=== PATIENT | male | born 1960 | race African-American/Black ===

== ENCOUNTER 2018-02-10 18:12 | Emergency (ER) | payer MEDICAID ==
[~2018-02-10] VITALS: Ht 177.8 cm; Wt 78.0 kg
[~2018-02-10 18:12] MED LIST: ASPI-1159 PO
[2018-02-10 21:34] LABS: CLARITY URINE TURBID (CLEAR); COLOR URINE RED (YELLOW); KETONES URINE TRACE (NEGATIVE); LEUKOCYTE ESTERASE URINE 3+ (NEGATIVE); NITRITE URINE NEGATIVE (NEGATIVE); OCCULT BLOOD URINE 3+ (NEGATIVE); PH URINE 6.5 (4.5-8.0); PROTEIN URINE 2+ (NEGATIVE); SPECIFIC GRAVITY URINE 1.014 (1.005-1.030)
[2018-02-11 00:54] VITALS: BP 123/75
== END 2018-02-11 02:06 | disposition home or self-care (01) ==
LOC: ER 18:12
DX: T83.018A Breakdown (mechanical) of other urinary catheter, initial encounter (principal); N39.0 Urinary tract infection, site not specified; N40.0 Benign prostatic hyperplasia without lower urinary tract symptoms; G83.89 Other specified paralytic syndromes; Z79.899 Other long term (current) drug therapy; Z86.73 Personal history of transient ischemic attack (TIA), and cerebral infarction without residual deficits
CPT/HCPCS: 51702; 81003; 87077; 87086; 87186; 99284; A4217; Z7610

== ENCOUNTER 2018-02-21 10:16 | Emergency (ER) | payer MEDICAID ==
[~2018-02-21] VITALS: Ht 170.2 cm; Wt 77.0 kg
[2018-02-21 10:37] VITALS: BP 126/80
== END 2018-02-21 14:00 | disposition home or self-care (01) ==
LOC: ER 13:56
DX: Z43.6 Encounter for attention to other artificial openings of urinary tract (principal); N13.9 Obstructive and reflux uropathy, unspecified; Z86.73 Personal history of transient ischemic attack (TIA), and cerebral infarction without residual deficits; Z79.82 Long term (current) use of aspirin
CPT/HCPCS: 51702; 99284

== ENCOUNTER 2018-04-18 12:37 | Emergency (ER) | payer MEDICAID ==
[~2018-04-18] VITALS: Ht 172.7 cm; Wt 80.0 kg
[2018-04-18 13:25] LABS: CLARITY URINE CLOUDY (CLEAR); COLOR URINE YELLOW (YELLOW); KETONES URINE NEGATIVE (NEGATIVE); LEUKOCYTE ESTERASE URINE 2+ (NEGATIVE); NITRITE URINE NEGATIVE (NEGATIVE); OCCULT BLOOD URINE 3+ (NEGATIVE); PH URINE 6.5 (4.5-8.0); PROTEIN URINE 1+ (NEGATIVE); SPECIFIC GRAVITY URINE 1.017 (1.005-1.030)
[2018-04-18 13:43] VITALS: BP 165/93
== END 2018-04-18 14:10 | disposition home or self-care (01) ==
LOC: ER 12:44
DX: R33.9 Retention of urine, unspecified (principal); I69.354 Hemiplegia and hemiparesis following cerebral infarction affecting left non-dominant side; Z79.82 Long term (current) use of aspirin
CPT/HCPCS: 51702; 99284

== ENCOUNTER 2018-04-20 09:33 | Inpatient (IN) | payer MEDICAID ==
[~2018-04-20] VITALS: Ht 172.7 cm; Wt 81.7 kg
[2018-04-20] MEDS ORDERED: ONDANSETRON HCL 4MG/2ML INJ IV ONE (10:30)
[2018-04-20] MEDS ORDERED: MORPHINE SULFATE 4 MG/ML CPJ (NOT FOR IM USE) IV ONE (10:30)
[2018-04-20 10:33] LABS: BASOPHILS % 0.8 % (0.0-2.0); EOSINOPHILS % 1.9 % (0.0-5.0); HEMATOCRIT. 49.2 % (42.0-52.0); HEMOGLOBIN. 16.8 g/dL (14.0-18.0); LYMPHOCYTES % 21.5 % (20.0-50.0); MEAN CORPUSCULAR HEMOGLOBIN 30.7 pg (28.0-32.0); MEAN CORPUSCULAR VOLUME 90.2 fL (80.0-94.0); MEAN PLATELET VOLUME 7.7 fl (7.4-10.4); MONOCYTES % 10.1 % (2.0-8.0); NEUTROPHILS % 65.7 % (40.0-76.0); PLATELET 223 x1000/uL (130-400); RED BLOOD CELL COUNT 5.46 mill/uL (4.7-6.1); RED CELL DISTRIBUTION WIDTH 14.6 % (11.6-14.6)
[2018-04-20 10:42] LABS: INR 1.1; PARTIAL THROMBOPLASTIN TIME 29.3 sec (23.4-31.0); PROTHROMBIN TIME 10.7 sec (9.1-11.1)
[2018-04-20 10:57] LABS: CHLORIDE 106 mEq/L (98-107); ETHANOL BLOOD < 10 mg/dL
[2018-04-20] MEDS ORDERED: ASPIRIN 81MG TABLET PO ONE (11:15)
[2018-04-20] MEDS ORDERED: HYDROCODONE/ACETAMINOPHEN 5/325MG TABLET PO PRN (12:15)
[2018-04-20] MEDS ORDERED: CLONIDINE 0.1MG TABLET PO PRN (12:15)
[2018-04-20] MEDS ORDERED: MAGNESIUM/ALUMINUM HYDROXIDE/SIMETHICONE 30ML UDC PO PRN (12:15)
[2018-04-20] MEDS ORDERED: ONDANSETRON HCL 4MG/2ML INJ IV PRN (12:15)
[2018-04-20] MEDS ORDERED: IPRATROPIUM/ALBUTEROL 0.5-3(2.5)MG/3ML NEB INH PRN (12:15)
[2018-04-20] MEDS ORDERED: DOCUSATE SODIUM 100MG CAPSULE PO PRN (12:15)
[2018-04-20 12:19] LABS: CLARITY URINE CLEAR (CLEAR); COLOR URINE YELLOW (YELLOW); KETONES URINE NEGATIVE (NEGATIVE); LEUKOCYTE ESTERASE URINE 3+ (NEGATIVE); NITRITE URINE NEGATIVE (NEGATIVE); OCCULT BLOOD URINE 1+ (NEGATIVE); PROTEIN URINE NEGATIVE (NEGATIVE); SPECIFIC GRAVITY URINE 1.007 (1.005-1.030)
[2018-04-20 13:54] LABS: *COCAINE SCREEN URINE NEGATIVE (NEGATIVE); METHADONE URINE SCREEN NEGATIVE (NEGATIVE); OPIATES URINE SCREEN NEGATIVE (NEGATIVE)
[2018-04-20 13:55] LABS: *AMPHETAMINES SCREEN URINE NEGATIVE (NEGATIVE); *BARBITURATES SCREEN URINE NEGATIVE (NEGATIVE); *BENZODIAZEPINES SCREEN URINE NEGATIVE (NEGATIVE); CANNABINOID URINE SCREEN NEGATIVE (NEGATIVE); PHENCYCLIDINE URINE SCREEN NEGATIVE (NEGATIVE)
[2018-04-20 15:14] LABS: CHLORIDE 107 mEq/L (98-107)
[2018-04-20 15:24] LABS: CREATINE KINASE 402 IU/L (39-308); CREATINE KINASE MB FRACTION 1.3 ng/mL (0.5-3.6)
[2018-04-20 15:45] VITALS: BP 128/80
[2018-04-20 16:00] VITALS: BP 128/80
[2018-04-20] MEDS: ENOXAPARIN 40MG/0.4ML SYR SUBCUT SCH (17:49)
[2018-04-20 20:00] VITALS: BP 114/76
[2018-04-20] MEDS: BACLOFEN 10MG TABLET PO SCH (21:18)
[2018-04-20 23:53] LABS: CREATINE KINASE 583 IU/L (39-308); CREATINE KINASE MB FRACTION 1.2 ng/mL (0.5-3.6)
[2018-04-21] VITALS (7 sets, daily range): BP systolic 98–139; BP diastolic 45–68
[2018-04-21] MEDS: BACLOFEN 10MG TABLET PO SCH ×3 (06:45→21:14)
[2018-04-21 07:46] LABS: HEMATOCRIT. 46.5 % (42.0-52.0); HEMOGLOBIN. 15.6 g/dL (14.0-18.0); MEAN CORPUSCULAR HEMOGLOBIN 30.3 pg (28.0-32.0); MEAN CORPUSCULAR VOLUME 90.7 fL (80.0-94.0); PLATELET 215 x1000/uL (130-400); RED BLOOD CELL COUNT 5.13 mill/uL (4.7-6.1); RED CELL DISTRIBUTION WIDTH 14.5 % (11.6-14.6)
[2018-04-21] MEDS: ENOXAPARIN 40MG/0.4ML SYR SUBCUT SCH (09:00)
[2018-04-21] MEDS: ASPIRIN 81MG EC TABLET PO SCH (10:03)
[2018-04-21 13:55] LABS: PLATELET ESTIMATE NORMAL
[2018-04-21] MEDS: CEFTRIAXONE 1 G PREMIX 50 ML IV SCH (15:11)
[2018-04-21] MEDS: TAMSULOSIN HCL 0.4MG SR CAPSULE PO SCH (21:14)
[2018-04-22] VITALS: BP 97/54
[2018-04-22 04:13] VITALS: BP 97/51
[2018-04-22] MEDS: BACLOFEN 10MG TABLET PO SCH ×3 (05:09→21:34)
[2018-04-22 08:00] VITALS: BP 104/68
[2018-04-22] MEDS: ENOXAPARIN 40MG/0.4ML SYR SUBCUT SCH (09:00)
[2018-04-22] MEDS: ASPIRIN 81MG EC TABLET PO SCH (10:26)
[2018-04-22 12:00] VITALS: BP 102/61
[2018-04-22] MEDS: CLOPIDOGREL 75MG TABLET PO SCH (13:46)
[2018-04-22] MEDS: CEFTRIAXONE 1 G PREMIX 50 ML IV SCH (14:01)
[2018-04-22 16:00] VITALS: BP 123/77
[2018-04-22 16:37] LABS: T4 FREE 1.04 ng/dL (0.76-1.46)
[2018-04-22 16:50] LABS: FOLIC ACID (FOLATE) SERUM 11.3 ng/mL (>5.38)
[2018-04-22 20:00] VITALS: BP 121/79
[2018-04-22] MEDS: TAMSULOSIN HCL 0.4MG SR CAPSULE PO SCH (21:33)
[2018-04-22] MEDS: ATORVASTATIN CALCIUM 20MG TABLET PO SCH (21:34)
[2018-04-23] VITALS (7 sets, daily range): BP systolic 110–184; BP diastolic 64–99
[2018-04-23] MEDS: BACLOFEN 10MG TABLET PO SCH ×3 (06:54→22:42)
[2018-04-23] MEDS: ENOXAPARIN 40MG/0.4ML SYR SUBCUT SCH (09:00)
[2018-04-23] MEDS ORDERED: CLONIDINE 0.1MG TABLET PO PRN (09:15)
[2018-04-23] MEDS: CLOPIDOGREL 75MG TABLET PO SCH (10:08)
[2018-04-23] MEDS: CEFTRIAXONE 1 G PREMIX 50 ML IV SCH (14:33)
[2018-04-23] MEDS: LACTULOSE 20G/30ML UDC PO SCH ×2 (17:17→22:46)
[2018-04-23] MEDS: CYANOCOBALAMIN 1000MCG/ML VIAL IM SCH (17:18)
[2018-04-23] MEDS: TAMSULOSIN HCL 0.4MG SR CAPSULE PO SCH (22:43)
[2018-04-23] MEDS: ATORVASTATIN CALCIUM 20MG TABLET PO SCH (22:44)
[2018-04-24 04:10] VITALS: BP 115/68
[2018-04-24] MEDS: BACLOFEN 10MG TABLET PO SCH ×3 (06:27→21:16)
[2018-04-24 07:46] LABS: BASOPHILS % 0.8 % (0.0-2.0); EOSINOPHILS % 4.3 % (0.0-5.0); HEMATOCRIT. 47.9 % (42.0-52.0); LYMPHOCYTES % 31.7 % (20.0-50.0); MEAN CORPUSCULAR VOLUME 89.8 fL (80.0-94.0); MEAN PLATELET VOLUME 7.6 fl (7.4-10.4); MONOCYTES % 13.7 % (2.0-8.0); NEUTROPHILS % 49.5 % (40.0-76.0); PLATELET 233 x1000/uL (130-400); RED BLOOD CELL COUNT 5.34 mill/uL (4.7-6.1); RED CELL DISTRIBUTION WIDTH 14.2 % (11.6-14.6)
[2018-04-24 08:51] LABS: CHLORIDE 105 mEq/L (98-107)
[2018-04-24 08:53] LABS: PHOSPHORUS 3.4 mg/dL (2.5-4.9)
[2018-04-24] MEDS: ENOXAPARIN 40MG/0.4ML SYR SUBCUT SCH ×2 (09:00→09:38)
[2018-04-24] MEDS: CYANOCOBALAMIN 1000MCG/ML VIAL IM SCH (09:38)
[2018-04-24] MEDS: CLOPIDOGREL 75MG TABLET PO SCH (09:38)
[2018-04-24] MEDS: LACTULOSE 20G/30ML UDC PO SCH (09:38)
[2018-04-24 12:00] VITALS: BP 115/73
[2018-04-24] MEDS: CEFTRIAXONE 1 G PREMIX 50 ML IV SCH (14:01)
[2018-04-24 16:00] VITALS: BP 105/65
[2018-04-24 20:00] VITALS: BP 111/76
[2018-04-24] MEDS: ATORVASTATIN CALCIUM 20MG TABLET PO SCH (21:16)
[2018-04-24] MEDS: TAMSULOSIN HCL 0.4MG SR CAPSULE PO SCH (21:22)
[2018-04-25] VITALS: BP 116/74
[2018-04-25 04:00] VITALS: BP_SYST 110; BP_SYST 115; BP_DIAS 50; BP_DIAS 80
[2018-04-25] MEDS: BACLOFEN 10MG TABLET PO SCH ×4 (05:39→20:49)
[2018-04-25] MEDS: ENOXAPARIN 40MG/0.4ML SYR SUBCUT SCH (09:02)
[2018-04-25] MEDS: CYANOCOBALAMIN 1000MCG/ML VIAL IM SCH (09:02)
[2018-04-25] MEDS: CLOPIDOGREL 75MG TABLET PO SCH (09:02)
[2018-04-25 12:06] VITALS: BP 115/71
[2018-04-25 13:07] LABS: ANTI-THROMBIN ACTIVITY 105 % (75-135); DRVVT LA 38.2 sec (0.0-47.0); LUPUS ANTICOAG INTERPRETATION Comment: (.); PROTEIN C FUNCTIONAL 105 % (73-180); PTT-LA 32.5 sec (0.0-51.9)
[2018-04-25 15:58] VITALS: BP 130/79
[2018-04-25] MEDS: CEFTRIAXONE 1 G PREMIX 50 ML IV SCH (17:06)
[2018-04-25 20:00] VITALS: BP 137/86
[2018-04-25] MEDS: ACETAMINOPHEN 325MG TABLET PO PRN (20:06)
[2018-04-25] MEDS: TAMSULOSIN HCL 0.4MG SR CAPSULE PO SCH (20:50)
[2018-04-25] MEDS: ATORVASTATIN CALCIUM 20MG TABLET PO SCH (20:50)
[2018-04-26 04:00] VITALS: BP 111/70
[2018-04-26 04:13] LABS: ANTI-CARDIOLIPIN AB IGA < 9 APL U/mL (0-11); ANTI-CARDIOLIPIN AB IGG < 9 GPL U/mL (0-14); ANTI-CARDIOLIPIN AB IGM < 9 MPL U/mL (0-12)
[2018-04-26] MEDS: BACLOFEN 10MG TABLET PO SCH ×2 (05:35→13:25)
[2018-04-26] MEDS: CLOPIDOGREL 75MG TABLET PO SCH (08:14)
[2018-04-26] MEDS: ENOXAPARIN 40MG/0.4ML SYR SUBCUT SCH (08:15)
[2018-04-26] MEDS: CYANOCOBALAMIN 1000MCG/ML VIAL IM SCH (08:15)
[2018-04-26] MEDS ORDERED: POLYETHYLENE GLYCOL 3350 (17GM) 1 DOSE PACK PO PRN (11:00)
[2018-04-26 12:00] VITALS: BP 108/69
[2018-04-26 14:05] VITALS: BP 127/84
[2018-04-26] MEDS: ACETAMINOPHEN 325MG TABLET PO PRN (14:36)
[2018-04-26] MEDS: CEFTRIAXONE 1 G PREMIX 50 ML IV SCH (14:37)
[2018-04-26 16:00] VITALS: BP 102/64
[2018-04-26 18:23] VITALS: BP 102/64
== END 2018-04-26 19:09 | DRG 463 ==
LOC: ER 09:33 → EDBEDREQTM 10:19 → EDBEDREQSVC 10:19 → 6WST 11:10 → EDBEDREQTM 11:15 → EDBEDREQ 11:15 → ENRESERV 14:23 → 6WST 16:40
PROVIDERS: ADMIT Internal Medicine; ATTEND Internal Medicine
DX: N39.0 Urinary tract infection, site not specified (principal); G93.40 Encephalopathy, unspecified; I69.354 Hemiplegia and hemiparesis following cerebral infarction affecting left non-dominant side; M62.82 Rhabdomyolysis; N40.0 Benign prostatic hyperplasia without lower urinary tract symptoms; I10 Essential (primary) hypertension; M24.50 Contracture, unspecified joint; E78.5 Hyperlipidemia, unspecified; H26.9 Unspecified cataract; H54.61 Unqualified visual loss, right eye, normal vision left eye; Z99.3 Dependence on wheelchair; I69.398 Other sequelae of cerebral infarction; Z79.82 Long term (current) use of aspirin; Z79.899 Other long term (current) drug therapy
CPT/HCPCS: 36415; 70544; 70551; 71045; 80048; 80061; 80305; 81400; 81403; 81407; 81479; 82550; 82553; 82607; 82746; 82962; 83036; 83721; 83735; 83880; 84100; 84439; 84443; 84481; 84484; 85300; 85303; 85306; 85613; 85732; 86147; 87077; 87186; 92523; 92610; 93005; 93306; 93880; 93970; 96365; 97112; 97163; 97167; 97530; 99285; G0482; J0696; J1650; J3420; J7050

== ENCOUNTER 2019-11-05 20:57 | Emergency (ER) | payer MEDICAID ==
[~2019-11-05] VITALS: Ht 182.9 cm; Wt 87.0 kg
[2019-11-05] MEDS ORDERED: SODIUM CHLORIDE 0.9% 1,000 ML IV ONE (22:28)
[2019-11-05 22:59] LABS: BG BASE EXCESS -0.2 mmol/L (-2.0-2.0); BG CARBOXYHEMOGLOBIN 0.5 % (0.5-1.5); BG DEOXYHEMOGLOBIN 2.9 % (0.0-5.0); BG FRACTION INSPIRED OXYGEN 21; BG HCO3 ACT 24.1 mmol/L (22.0-26.0); BG METHEMOGLOBIN 0.5 % (0.0-1.5); BG OXYGEN SATURATION 97.1 % (92.0-98.5); BG OXYHEMOGLOBIN 96.1 % (94.0-97.0); BG PCO2 38.4 mmHg (35.0-45.0); BG PH 7.415 (7.350-7.450); BG SAMPLE SITE RIGHT RADIAL; BG TOTAL HEMOGLOBIN 16.6 g/dL (12.0-18.0); BG VENT MODE ROOM AIR
[2019-11-05 23:37] LABS: CHLORIDE 108 mEq/L (98-107)
[2019-11-05 23:38] LABS: BASOPHILS % 0.9 % (0.0-2.0); EOSINOPHILS % 2.8 % (0.0-5.0); HEMATOCRIT. 47.5 % (42.0-52.0); HEMOGLOBIN. 16.2 g/dL (14.0-18.0); LYMPHOCYTES % 26.7 % (20.0-50.0); MEAN CORPUSCULAR HEMOGLOBIN 30.1 pg (28.0-32.0); MEAN CORPUSCULAR VOLUME 88.2 fL (80.0-94.0); MEAN PLATELET VOLUME 7.9 fl (7.4-10.4); MONOCYTES % 11.2 % (2.0-8.0); NEUTROPHILS % 58.4 % (40.0-76.0); PLATELET 255 x1000/uL (130-400); RED BLOOD CELL COUNT 5.39 mill/uL (4.7-6.1); RED CELL DISTRIBUTION WIDTH 14.8 % (11.6-14.6)
[2019-11-06] MEDS ORDERED: MORPHINE SULFATE 2 MG/ML CPJ (NOT FOR IM USE) IV ONE
[2019-11-06 03:02] LABS: CLARITY URINE CLOUDY (CLEAR); COLOR URINE DARK YELLOW (YELLOW); KETONES URINE TRACE (NEGATIVE); LEUKOCYTE ESTERASE URINE TRACE (NEGATIVE); NITRITE URINE NEGATIVE (NEGATIVE); OCCULT BLOOD URINE NEGATIVE (NEGATIVE); PH URINE 5.5 (4.5-8.0); PROTEIN URINE TRACE (NEGATIVE); SPECIFIC GRAVITY URINE 1.029 (1.005-1.030)
[2019-11-06 04:10] VITALS: BP 108/67
[2019-11-10] MEDS ORDERED: BACL-141 PO (00:38)
[2019-11-10] MEDS ORDERED: GABA-529 PO (00:38)
[2019-11-10] MEDS ORDERED: TAMS-11 PO (00:38)
[2019-11-10] MEDS ORDERED: B12/1TAB PO (00:38)
== END 2019-11-06 04:24 | disposition home or self-care (01) ==
LOC: ER 20:57
DX: G56.92 Unspecified mononeuropathy of left upper limb (principal); I10 Essential (primary) hypertension; I69.354 Hemiplegia and hemiparesis following cerebral infarction affecting left non-dominant side; N40.0 Benign prostatic hyperplasia without lower urinary tract symptoms; J44.9 Chronic obstructive pulmonary disease, unspecified
CPT/HCPCS: 36415; 36600; 71045; 80053; 81003; 82375; 82805; 83605; 83880; 84145; 84484; 85025; 85610; 87040; 93005; 96361; 96374; 99285; J2270; J7030

== ENCOUNTER 2020-01-29 08:31 | Inpatient (IN) | payer MEDICAID ==
[~2020-01-29] VITALS: Ht 170.2 cm; Wt 77.1 kg
[~2020-01-29 08:31] MED LIST changes: -ASPI-1159 PO; +B12/1TAB PO; +BACL-141 PO; +GABA-529 PO; +TAMS-11 PO
[2020-01-29 08:56] LABS: BASOPHILS % 0.8 % (0.0-2.0); EOSINOPHILS % 4.3 % (0.0-5.0); HEMATOCRIT. 47.4 % (42.0-52.0); HEMOGLOBIN. 15.9 g/dL (14.0-18.0); LYMPHOCYTES % 41.8 % (20.0-50.0); MEAN CORPUSCULAR HEMOGLOBIN 29.2 pg (28.0-32.0); MEAN CORPUSCULAR VOLUME 87.1 fL (80.0-94.0); MEAN PLATELET VOLUME 7.5 fl (7.4-10.4); NEUTROPHILS % 43.1 % (40.0-76.0); PLATELET 269 x1000/uL (130-400); RED BLOOD CELL COUNT 5.44 mill/uL (4.7-6.1)
[2020-01-29 09:02] LABS: CHLORIDE 109 mEq/L (98-107)
[2020-01-29 09:06] LABS: ETHANOL BLOOD < 10 mg/dL; INR 1.1; PROTHROMBIN TIME 11.4 sec (9.6-11.0)
[2020-01-29 09:09] LABS: LDL CHOLESTEROL 88 mg/dL (5-100)
[2020-01-29 09:20] LABS: CLARITY URINE CLEAR (CLEAR); COLOR URINE YELLOW (YELLOW); KETONES URINE NEGATIVE (NEGATIVE); LEUKOCYTE ESTERASE URINE NEGATIVE (NEGATIVE); NITRITE URINE NEGATIVE (NEGATIVE); OCCULT BLOOD URINE NEGATIVE (NEGATIVE); PROTEIN URINE NEGATIVE (NEGATIVE); SPECIFIC GRAVITY URINE 1.017 (1.005-1.030)
[2020-01-29 09:36] LABS: *AMPHETAMINES SCREEN URINE NEGATIVE (NEGATIVE); *BARBITURATES SCREEN URINE NEGATIVE (NEGATIVE); *BENZODIAZEPINES SCREEN URINE NEGATIVE (NEGATIVE); *COCAINE SCREEN URINE NEGATIVE (NEGATIVE); CANNABINOID URINE SCREEN NEGATIVE (NEGATIVE)
[2020-01-29 09:37] LABS: METHADONE URINE SCREEN NEGATIVE (NEGATIVE); OPIATES URINE SCREEN NEGATIVE (NEGATIVE); PHENCYCLIDINE URINE SCREEN NEGATIVE (NEGATIVE)
[2020-01-29] MEDS ORDERED: LORAZEPAM 2MG/ML CPJ IV ONE (10:30)
[2020-01-29] MEDS ORDERED: LEVETIRACETAM 500MG PREMIX 100 ML IV ONE (10:45)
[2020-01-29 15:03] VITALS: BP 132/75
[2020-01-29] MEDS ORDERED: IOHEXOL-350 100 ML BOTTLE ONE (15:14)
[2020-01-29 16:00] VITALS: BP 136/79
[2020-01-29] MEDS ORDERED: METOPROLOL TARTRATE 25MG TABLET PO NR (16:00)
[2020-01-29] MEDS: DEXT 5%/0.45% NACL 1000ML 1,000 ML IV SCH (16:32)
[2020-01-29] MEDS: ENOXAPARIN 40MG/0.4ML SYR SUBCUT SCH (16:34)
[2020-01-29 17:47] VITALS: BP 106/72
[2020-01-29] MEDS ORDERED: LEVETIRACETAM 1000MG/100ML 100 ML IV SCH (18:30)
[2020-01-29 19:23] LABS: T4 FREE 1.16 ng/dL (0.76-1.46)
[2020-01-29 19:36] LABS: FOLIC ACID (FOLATE) SERUM 10.6 ng/mL (>5.38)
[2020-01-29 20:00] VITALS: BP 124/69
[2020-01-29] MEDS ORDERED: LEVETIRACETAM 500MG PREMIX 100 ML IV SCH ×2 (21:00)
[2020-01-29] MEDS: METOPROLOL TARTRATE 25MG TABLET PO SCH (21:28)
[2020-01-29] MEDS: ATORVASTATIN CALCIUM 10MG TABLET PO SCH (21:28)
[2020-01-29 22:00] VITALS: BP 107/69
[2020-01-30] VITALS (13 sets, daily range): BP systolic 93–126; BP diastolic 45–87
[2020-01-30] MEDS: LORAZEPAM 2MG/ML CPJ IV PRN ×2 (02:39→05:40)
[2020-01-30] MEDS: DEXT 5%/0.45% NACL 1000ML 1,000 ML IV SCH ×2 (05:24→17:33)
[2020-01-30] MEDS ORDERED: BACLOFEN 10MG TABLET PO SCH (06:00)
[2020-01-30] MEDS ORDERED: GABAPENTIN 100MG CAPSULE PO SCH (09:00)
[2020-01-30] MEDS ORDERED: PHENYTOIN SODIUM IV NR (09:00)
[2020-01-30] MEDS ORDERED: ASPIRIN 81MG TABLET PO SCH (09:00)
[2020-01-30] MEDS: METOPROLOL TARTRATE 25MG TABLET PO SCH (09:00)
[2020-01-30] MEDS ORDERED: LEVETIRACETAM 1,000 MG in SODIUM CHLORIDE 0.9% 100 ML IV SCH ×4 (09:00)
[2020-01-30] MEDS ORDERED: SODIUM CHLORIDE 0.9% IV NR (09:00)
[2020-01-30] MEDS: CYANOCOBALAMIN/FA/PYRIDOXINE TABLET PO SCH (09:54)
[2020-01-30] MEDS: CLOPIDOGREL 75MG TABLET PO SCH (09:54)
[2020-01-30] MEDS: LEVETIRACETAM 1,000 MG in SODIUM CHLORIDE 0.9% 100 ML IV SCH ×2 (09:54→20:56)
[2020-01-30 16:08] LABS: EOSINOPHILS % 2.8 % (0.0-5.0); HEMATOCRIT. 45.9 % (42.0-52.0); HEMOGLOBIN. 15.6 g/dL (14.0-18.0); MEAN CORPUSCULAR HEMOGLOBIN 29.3 pg (28.0-32.0); MEAN CORPUSCULAR VOLUME 86.6 fL (80.0-94.0); MEAN PLATELET VOLUME 7.6 fl (7.4-10.4); MONOCYTES % 10.4 % (2.0-8.0); NEUTROPHILS % 57.8 % (40.0-76.0); PLATELET 247 x1000/uL (130-400); RED CELL DISTRIBUTION WIDTH 13.9 % (11.6-14.6)
[2020-01-30 16:15] LABS: CHLORIDE 108 mEq/L (98-107)
[2020-01-30] MEDS: ENOXAPARIN 40MG/0.4ML SYR SUBCUT SCH (17:33)
[2020-01-30] MEDS: TAMSULOSIN HCL 0.4MG SR CAPSULE PO SCH (20:46)
[2020-01-30] MEDS: ATORVASTATIN CALCIUM 10MG TABLET PO SCH (20:47)
[2020-01-31] VITALS (27 sets, daily range): BP systolic 95–164; BP diastolic 61–96
[2020-01-31 06:34] LABS: BASOPHILS % 0.6 % (0.0-2.0); EOSINOPHILS % 4.2 % (0.0-5.0); HEMATOCRIT. 46.8 % (42.0-52.0); HEMOGLOBIN. 15.9 g/dL (14.0-18.0); LYMPHOCYTES % 19.3 % (20.0-50.0); MEAN CORPUSCULAR HEMOGLOBIN 29.4 pg (28.0-32.0); MEAN CORPUSCULAR VOLUME 86.4 fL (80.0-94.0); MEAN PLATELET VOLUME 7.6 fl (7.4-10.4); MONOCYTES % 11.6 % (2.0-8.0); NEUTROPHILS % 64.3 % (40.0-76.0); PLATELET 246 x1000/uL (130-400); RED BLOOD CELL COUNT 5.41 mill/uL (4.7-6.1); RED CELL DISTRIBUTION WIDTH 14.5 % (11.6-14.6)
[2020-01-31 06:41] LABS: CHLORIDE 109 mEq/L (98-107)
[2020-01-31] MEDS: CYANOCOBALAMIN/FA/PYRIDOXINE TABLET PO SCH (08:56)
[2020-01-31] MEDS: LEVETIRACETAM 1,000 MG in SODIUM CHLORIDE 0.9% 100 ML IV SCH ×2 (08:56→20:24)
[2020-01-31] MEDS: CLOPIDOGREL 75MG TABLET PO SCH (08:56)
[2020-01-31] MEDS: DEXT 5%/0.45% NACL 1000ML 1,000 ML IV SCH ×2 (08:57→23:22)
[2020-01-31] MEDS: ENOXAPARIN 40MG/0.4ML SYR SUBCUT SCH (18:23)
[2020-01-31] MEDS: TAMSULOSIN HCL 0.4MG SR CAPSULE PO SCH (20:24)
[2020-01-31] MEDS: ATORVASTATIN CALCIUM 10MG TABLET PO SCH (20:24)
[2020-01-31] MEDS ORDERED: PHENYTOIN SODIUM 100MG/2ML VIAL IV SCH (21:00)
[2020-01-31] MEDS: LORAZEPAM 2MG/ML CPJ IV PRN (23:22)
[2020-02-01] VITALS (12 sets, daily range): BP systolic 118–153; BP diastolic 73–85
[2020-02-01 06:15] LABS: BASOPHILS % 0.7 % (0.0-2.0); EOSINOPHILS % 1.6 % (0.0-5.0); HEMATOCRIT. 48.7 % (42.0-52.0); HEMOGLOBIN. 16.5 g/dL (14.0-18.0); MEAN CORPUSCULAR HEMOGLOBIN 29.5 pg (28.0-32.0); MEAN CORPUSCULAR VOLUME 87.3 fL (80.0-94.0); MEAN PLATELET VOLUME 7.8 fl (7.4-10.4); MONOCYTES % 9.2 % (2.0-8.0); NEUTROPHILS % 73.5 % (40.0-76.0); PLATELET 222 x1000/uL (130-400); RED BLOOD CELL COUNT 5.58 mill/uL (4.7-6.1); RED CELL DISTRIBUTION WIDTH 14.3 % (11.6-14.6)
[2020-02-01 06:39] LABS: CHLORIDE 107 mEq/L (98-107)
[2020-02-01] MEDS: LEVETIRACETAM 1,000 MG in SODIUM CHLORIDE 0.9% 100 ML IV SCH ×2 (09:17→20:56)
[2020-02-01] MEDS: CLOPIDOGREL 75MG TABLET PO SCH (09:17)
[2020-02-01] MEDS: CYANOCOBALAMIN/FA/PYRIDOXINE TABLET PO SCH (09:17)
[2020-02-01] MEDS: ENOXAPARIN 40MG/0.4ML SYR SUBCUT SCH (16:08)
[2020-02-01] MEDS: TAMSULOSIN HCL 0.4MG SR CAPSULE PO SCH (20:48)
[2020-02-01] MEDS: ATORVASTATIN CALCIUM 10MG TABLET PO SCH (20:51)
[2020-02-01] MEDS: LORAZEPAM 2MG/ML CPJ IV PRN (21:01)
[2020-02-02] VITALS (12 sets, daily range): BP systolic 119–138; BP diastolic 62–99
[2020-02-02] MEDS: LEVETIRACETAM 1,000 MG in SODIUM CHLORIDE 0.9% 100 ML IV SCH ×2 (11:56→21:14)
[2020-02-02] MEDS: CYANOCOBALAMIN/FA/PYRIDOXINE TABLET PO SCH (11:56)
[2020-02-02] MEDS: CLOPIDOGREL 75MG TABLET PO SCH (11:57)
[2020-02-02] MEDS: ONDANSETRON HCL 4MG/2ML INJ IV PRN (12:37)
[2020-02-02] MEDS: ACETAMINOPHEN 325MG TABLET PO PRN (12:37)
[2020-02-02] MEDS: ENOXAPARIN 40MG/0.4ML SYR SUBCUT SCH (18:57)
[2020-02-02] MEDS: TAMSULOSIN HCL 0.4MG SR CAPSULE PO SCH (20:29)
[2020-02-02] MEDS: ATORVASTATIN CALCIUM 10MG TABLET PO SCH (20:29)
[2020-02-03] VITALS (12 sets, daily range): BP systolic 109–142; BP diastolic 69–91
[2020-02-03] MEDS: ACETAMINOPHEN 325MG TABLET PO PRN (00:25)
[2020-02-03] MEDS: ONDANSETRON HCL 4MG/2ML INJ IV PRN (00:25)
[2020-02-03 06:23] LABS: BASOPHILS % 0.5 % (0.0-2.0); EOSINOPHILS % 2.5 % (0.0-5.0); HEMATOCRIT. 47.8 % (42.0-52.0); HEMOGLOBIN. 16.1 g/dL (14.0-18.0); LYMPHOCYTES % 15.7 % (20.0-50.0); MEAN CORPUSCULAR HEMOGLOBIN 29.3 pg (28.0-32.0); MEAN CORPUSCULAR VOLUME 86.7 fL (80.0-94.0); MEAN PLATELET VOLUME 8.2 fl (7.4-10.4); MONOCYTES % 11.1 % (2.0-8.0); NEUTROPHILS % 70.2 % (40.0-76.0); PLATELET 216 x1000/uL (130-400); RED BLOOD CELL COUNT 5.51 mill/uL (4.7-6.1); RED CELL DISTRIBUTION WIDTH 14.3 % (11.6-14.6)
[2020-02-03 07:02] LABS: CHLORIDE 106 mEq/L (98-107)
[2020-02-03 07:19] LABS: PHOSPHORUS 3.7 mg/dL (2.5-4.9)
[2020-02-03] MEDS: CYANOCOBALAMIN/FA/PYRIDOXINE TABLET PO SCH (09:22)
[2020-02-03] MEDS: CLOPIDOGREL 75MG TABLET PO SCH (09:22)
[2020-02-03] MEDS: LORAZEPAM 2MG/ML CPJ IV PRN (09:22)
[2020-02-03] MEDS: LEVETIRACETAM 1,000 MG in SODIUM CHLORIDE 0.9% 100 ML IV SCH ×2 (10:48→21:24)
[2020-02-03] MEDS: ENOXAPARIN 40MG/0.4ML SYR SUBCUT SCH (16:55)
[2020-02-03] MEDS: ATORVASTATIN CALCIUM 10MG TABLET PO SCH (21:26)
[2020-02-03] MEDS: TAMSULOSIN HCL 0.4MG SR CAPSULE PO SCH (21:26)
[2020-02-04] VITALS (11 sets, daily range): BP systolic 108–137; BP diastolic 61–79
[2020-02-04] MEDS: CLOPIDOGREL 75MG TABLET PO SCH (08:59)
[2020-02-04] MEDS: CYANOCOBALAMIN/FA/PYRIDOXINE TABLET PO SCH (08:59)
[2020-02-04] MEDS: LEVETIRACETAM 1,000 MG in SODIUM CHLORIDE 0.9% 100 ML IV SCH ×2 (09:06→21:02)
[2020-02-04] MEDS: ENOXAPARIN 40MG/0.4ML SYR SUBCUT SCH (16:18)
[2020-02-04] MEDS: ATORVASTATIN CALCIUM 10MG TABLET PO SCH (21:14)
[2020-02-04] MEDS: ACETAMINOPHEN 325MG TABLET PO PRN (21:14)
[2020-02-04] MEDS: TAMSULOSIN HCL 0.4MG SR CAPSULE PO SCH (21:14)
[2020-02-05] VITALS (8 sets, daily range): BP systolic 98–137; BP diastolic 59–85
[2020-02-05] MEDS: CLOPIDOGREL 75MG TABLET PO SCH (08:32)
[2020-02-05] MEDS: LEVETIRACETAM 1,000 MG in SODIUM CHLORIDE 0.9% 100 ML IV SCH ×2 (08:32→22:02)
[2020-02-05] MEDS: CYANOCOBALAMIN/FA/PYRIDOXINE TABLET PO SCH (08:32)
[2020-02-05] MEDS: ENOXAPARIN 40MG/0.4ML SYR SUBCUT SCH (15:34)
[2020-02-05] MEDS: ACETAMINOPHEN 325MG TABLET PO PRN (17:31)
[2020-02-05 18:54] LABS: HEMATOCRIT 47.8 % (42.0-52.0); HEMOGLOBIN 16.1 g/dL (14.0-18.0); MEAN CORPUSCULAR HEMOGLOBIN 29.4 pg (28.0-32.0); MEAN CORPUSCULAR VOLUME 86.9 fL (80.0-94.0); PLATELET 237 x1000/uL (130-400); RED CELL DISTRIBUTION WIDTH 14.2 % (11.6-14.6)
[2020-02-05 20:13] LABS: CLARITY URINE TURBID (CLEAR); COLOR URINE YELLOW (YELLOW); KETONES URINE NEGATIVE (NEGATIVE); LEUKOCYTE ESTERASE URINE 1+ (NEGATIVE); NITRITE URINE NEGATIVE (NEGATIVE); OCCULT BLOOD URINE NEGATIVE (NEGATIVE); PH URINE >=9.0 (4.5-8.0); PROTEIN URINE 1+ (NEGATIVE); SPECIFIC GRAVITY URINE 1.026 (1.005-1.030)
[2020-02-05] MEDS: PIPERACILLIN/TAZOBACTAM 3.375 G in DEXT 5% WATER 100 ML IV SCH (20:56)
[2020-02-05] MEDS: TAMSULOSIN HCL 0.4MG SR CAPSULE PO SCH (21:38)
[2020-02-05] MEDS: ATORVASTATIN CALCIUM 10MG TABLET PO SCH (21:38)
[2020-02-05] MEDS ORDERED: PIPERACILLIN/TAZOBACTAM 3.375 G/VIAL IV SCH (22:00)
[2020-02-06] VITALS: BP 155/62
[2020-02-06] MEDS ORDERED: LORAZEPAM 2MG/ML CPJ IV PRN
[2020-02-06 04:00] VITALS: BP 146/95
[2020-02-06] MEDS: PIPERACILLIN/TAZOBACTAM 3.375 G in DEXT 5% WATER 100 ML IV SCH ×3 (04:50→21:00)
[2020-02-06 08:00] VITALS: BP 121/78
[2020-02-06] MEDS: DOCUSATE SODIUM 100MG CAPSULE PO SCH (09:00)
[2020-02-06] MEDS: CLOPIDOGREL 75MG TABLET PO SCH (09:49)
[2020-02-06] MEDS: LEVETIRACETAM 1,000 MG in SODIUM CHLORIDE 0.9% 100 ML IV SCH ×2 (09:49→21:01)
[2020-02-06] MEDS: CYANOCOBALAMIN/FA/PYRIDOXINE TABLET PO SCH (09:49)
[2020-02-06 12:00] VITALS: BP 133/79
[2020-02-06] MEDS: ENOXAPARIN 40MG/0.4ML SYR SUBCUT SCH (16:25)
[2020-02-06 20:00] VITALS: BP 117/70
[2020-02-06] MEDS: ATORVASTATIN CALCIUM 10MG TABLET PO SCH (21:00)
[2020-02-06] MEDS: TAMSULOSIN HCL 0.4MG SR CAPSULE PO SCH (21:00)
[2020-02-07] VITALS: BP 113/62
[2020-02-07] MEDS: PIPERACILLIN/TAZOBACTAM 3.375 G in DEXT 5% WATER 100 ML IV SCH ×3 (03:35→20:37)
[2020-02-07 04:00] VITALS: BP 144/87
[2020-02-07 05:13] LABS: HEMATOCRIT. 45.5 % (42.0-52.0); HEMOGLOBIN. 15.3 g/dL (14.0-18.0); MEAN CORPUSCULAR HEMOGLOBIN 29.1 pg (28.0-32.0); MEAN CORPUSCULAR VOLUME 86.9 fL (80.0-94.0); MEAN PLATELET VOLUME 7.9 fl (7.4-10.4); PLATELET 201 x1000/uL (130-400); RED BLOOD CELL COUNT 5.24 mill/uL (4.7-6.1); RED CELL DISTRIBUTION WIDTH 14.7 % (11.6-14.6)
[2020-02-07 05:24] LABS: CHLORIDE 106 mEq/L (98-107)
[2020-02-07] MEDS: LEVETIRACETAM 1,250 MG in SODIUM CHLORIDE 0.9% 100 ML IV SCH ×2 (08:36→21:00)
[2020-02-07] MEDS: CLOPIDOGREL 75MG TABLET PO SCH (08:36)
[2020-02-07] MEDS: DOCUSATE SODIUM 100MG CAPSULE PO SCH (08:37)
[2020-02-07] MEDS: CYANOCOBALAMIN/FA/PYRIDOXINE TABLET PO SCH (08:37)
[2020-02-07] MEDS ORDERED: ENOXAPARIN 40MG/0.4ML SYR SUBCUT SCH (09:00)
[2020-02-07 10:33] LABS: PLATELET ESTIMATE NORMAL
[2020-02-07] MEDS: ENOXAPARIN 40MG/0.4ML SYR SUBCUT SCH (16:55)
[2020-02-07 20:00] VITALS: BP 130/78
[2020-02-07] MEDS: TAMSULOSIN HCL 0.4MG SR CAPSULE PO SCH (20:38)
[2020-02-07] MEDS: ATORVASTATIN CALCIUM 10MG TABLET PO SCH (20:38)
[2020-02-08] VITALS: BP_SYST 117; BP_SYST 129; BP_DIAS 76; BP_DIAS 87
[2020-02-08] MEDS: AMPICILLIN SOD/SULBACTAM NA 1.5 G in SODIUM CHLORIDE 0.9% 50 ML IV SCH ×5 (03:44→23:33)
[2020-02-08 04:00] VITALS: BP 109/67
[2020-02-08 08:00] VITALS: BP 120/76
[2020-02-08] MEDS: CYANOCOBALAMIN/FA/PYRIDOXINE TABLET PO SCH (09:38)
[2020-02-08] MEDS: DOCUSATE SODIUM SUGAR FREE 100MG/10ML UDC NG SCH (09:38)
[2020-02-08] MEDS: CLOPIDOGREL 75MG TABLET PO SCH (09:38)
[2020-02-08] MEDS: LEVETIRACETAM 1,250 MG in SODIUM CHLORIDE 0.9% 100 ML IV SCH ×2 (09:38→22:13)
[2020-02-08] MEDS: ACETAMINOPHEN 325MG TABLET PO PRN (09:39)
[2020-02-08 12:00] VITALS: BP 151/94
[2020-02-08 16:00] VITALS: BP 110/66
[2020-02-08 20:00] VITALS: BP 108/73
[2020-02-08] MEDS: ATORVASTATIN CALCIUM 10MG TABLET PO SCH (20:55)
[2020-02-08] MEDS: TAMSULOSIN HCL 0.4MG SR CAPSULE PO SCH (20:56)
[2020-02-08] MEDS ORDERED: PANTOPRAZOLE SODIUM 40 MG/VIAL IV SCH (21:00)
[2020-02-09 04:00] VITALS: BP 103/66
[2020-02-09] MEDS: AMPICILLIN SOD/SULBACTAM NA 1.5 G in SODIUM CHLORIDE 0.9% 50 ML IV SCH ×3 (05:51→18:25)
[2020-02-09 08:00] VITALS: BP 103/60
[2020-02-09] MEDS: CYANOCOBALAMIN/FA/PYRIDOXINE TABLET PO SCH (09:00)
[2020-02-09] MEDS: CLOPIDOGREL 75MG TABLET PO SCH (09:00)
[2020-02-09] MEDS: DOCUSATE SODIUM SUGAR FREE 100MG/10ML UDC NG SCH (09:00)
[2020-02-09] MEDS: LEVETIRACETAM 1,250 MG in SODIUM CHLORIDE 0.9% 100 ML IV SCH ×3 (09:38→21:35)
[2020-02-09] MEDS ORDERED: CEFAZOLIN 1000MG PREMIX 50 ML IV NR (11:00)
[2020-02-09 12:00] VITALS: BP 117/66
[2020-02-09] MEDS ORDERED: MIDAZOLAM HCL 5 MG/5 ML VIAL ONE (12:02)
[2020-02-09] MEDS ORDERED: FENTANYL CITRATE/PF 50MCG/ML 2ML VIAL ONE (12:02)
[2020-02-09] MEDS ORDERED: MIDAZOLAM HCL 5 MG/5 ML VIAL IV PRN (12:18)
[2020-02-09 16:00] VITALS: BP 106/68
[2020-02-09 16:30] VITALS: BP 106/68
[2020-02-09] MEDS: ACETAMINOPHEN 325MG TABLET PO PRN (18:23)
[2020-02-09 20:00] VITALS: BP 114/72
[2020-02-09] MEDS: ATORVASTATIN CALCIUM 10MG TABLET PO SCH (20:25)
[2020-02-09] MEDS: TAMSULOSIN HCL 0.4MG SR CAPSULE PO SCH (20:32)
[2020-02-10] VITALS: BP 152/99
[2020-02-10 04:00] VITALS: BP 110/70
[2020-02-10 08:00] VITALS: BP 137/84
[2020-02-10] MEDS: LEVETIRACETAM 1,250 MG in SODIUM CHLORIDE 0.9% 100 ML IV SCH (09:09)
[2020-02-10] MEDS: CYANOCOBALAMIN/FA/PYRIDOXINE TABLET PO SCH (09:10)
[2020-02-10] MEDS: CLOPIDOGREL 75MG TABLET PO SCH (09:10)
[2020-02-10] MEDS: DOCUSATE SODIUM SUGAR FREE 100MG/10ML UDC NG SCH (09:10)
[2020-02-10 12:00] VITALS: BP 117/67
[2020-02-10 16:00] VITALS: BP 143/81
[2020-02-10 17:56] VITALS: BP 143/81
== END 2020-02-10 18:35 | DRG 720 ==
LOC: ER 08:31 → 5EST 10:36 → EDBEDREQ 10:41 → ENRESERV 12:01 → CVICU 01-31 02:01 → 5EST 01-31 15:00 → 6EST 02-04 19:08
PROVIDERS: ADMIT Internal Medicine Nephrology; ATTEND Internal Medicine Nephrology
PROC: 4A00X4Z Measurement of Central Nervous Electrical Activity, External Approach (ICD-10-PCS; principal; 2020-01-29)
PROC: 0DH68UZ Insertion of Feeding Device into Stomach, Via Natural or Artificial Opening Endoscopic (ICD-10-PCS; 2020-02-09)
DX: A41.50 Gram-negative sepsis, unspecified (principal); G40.909 Epilepsy, unspecified, not intractable, without status epilepticus; E87.8 Other disorders of electrolyte and fluid balance, not elsewhere classified; I10 Essential (primary) hypertension; J44.9 Chronic obstructive pulmonary disease, unspecified; N40.0 Benign prostatic hyperplasia without lower urinary tract symptoms; J98.11 Atelectasis; F14.10 Cocaine abuse, uncomplicated; E46 Unspecified protein-calorie malnutrition; E78.00 Pure hypercholesterolemia, unspecified; R13.12 Dysphagia, oropharyngeal phase; N39.0 Urinary tract infection, site not specified; G47.10 Hypersomnia, unspecified; K29.70 Gastritis, unspecified, without bleeding; E87.6 Hypokalemia; Z20.828 Contact with and (suspected) exposure to other viral communicable diseases; Z86.73 Personal history of transient ischemic attack (TIA), and cerebral infarction without residual deficits; Z68.26 Body mass index [BMI] 26.0-26.9, adult; Z86.19 Personal history of other infectious and parasitic diseases; G93.41 Metabolic encephalopathy; I63.89 Other cerebral infarction
CPT/HCPCS: 36415; 70496; 71045; 80048; 80053; 80061; 80185; 80305; 80320; 81003; 82040; 82140; 82607; 82746; 82962; 83036; 83721; 83735; 84100; 84134; 84145; 84439; 84443; 84481; 84484; 85025; 85027; 87077; 87186; 87635; 93005; 93306; 93880; 99291; J0295; J0690; J1165; J1650; J1953; J2060; J2250; J2405; J2543; J3010; J7050; J7060; Q9967; G0480